=== PATIENT | male | born 2000 | race Caucasian/White ===

== ENCOUNTER 2024-08-14 01:44 | Emergency (ER) | payer OTHER, SELFPAY ==
[2024-08-14 01:48] VITALS: BP 98/48
--- NOTE | 2024-08-14 08:21 | ED.GENMED ---
History of Present Illness
General
Chief Complaint: Alcohol Problem
Source: patient
Time Seen by Provider: 08/14/24 08:09
History of Present Illness
History of Present Illness:
23-year-old male with past medical history of ADHD, alcohol abuse and depression presenting to the emergency department for evaluation after experiencing palpitations last night noting that he combined bourbon and approximately 6 and half milligrams
of Valium, also taking Antabuse and attempt to abstain from alcohol but endorses persistent nausea and vomiting with multiple episodes throughout the night stating the last few episodes have been a little bit darker in nature. Patient states that
since sitting in the waiting room most of his symptoms have subsided although he does note he vomited about 20 minutes prior to me coming into the room to examine him. Denies any fevers, bowel or urinary symptoms, chest pain, shortness of breath,
abdominal pain or any other concerns. Patient denies any suicidal or homicidal thoughts. He does state that he is interested in information for rehab however does not wish to go to rehab today.
Past History
Past History
ED Past Medical History: Psychiatric (ADHD/depression)
ED Past Surgical History: Orthopedic
Social History
Tobacco: Non-smoker
Alcohol: Binge drinker
Drug: None
Personal: Single
Living: with family
Employment: Employed
Review of Systems
Review of Systems
All Other Systems: ROS reviewed and negative except as documented in HPI and ROS
Phy Exam
Physical Exam
Physical Exam:
GENERAL: Alert , in no apparent distress, dried vomitus on shirt
EYE: clear conjunctiva b/l
HEAD: NCAT
ENT: o/p clr, mmm.
CARDIAC: Regular rate and rhythm .
LUNGS: Clear breath sounds bilaterally, no acute respiratory distress, no wheezes/rales/rhonchi
ABDOMEN: Soft, without focal tenderness, no r/g, no cvat
NEUROLOGICAL: Alert and oriented
SKIN: Warm and dry, skin intact.
MUSCULOSKELETAL: No edema, well perfused.
PSYCH: Normal and appropriate interaction.
Scores
Heart Failure Risk
Heart Failure Risk Score: Not Applicable
Heart Score for Chest Pain Patients
STEMI patient?: Not applicable
Withdrawal Assessment of Alcohol
Withdrawal Assessment Completed?: Not applicable
Course
Orders/Labs/Results
Orders:
Orders
08/14/24 08:20
0.9% Sodium Chloride 1000 ml [Nss] 1,000 ml IV BOLUS
Ondansetron Injectable [Zofran] 4 mg IV NOW STA
08/14/24 08:42
Complete Blood Count/With Diff Urgent
Comprehensive Metabolic Panel Urgent
Abnormal Lab Results
08/14/24
08:42
WBC 11.4 H 10^3/uL
(4.8-10.8)
RBC 4.56 L 10^6/uL
(4.70-6.10)
MCH 33.1 H pg
(27.0-31.0)
RDW 10.8 L %
(11.5-14.5)
Absolute Neuts (auto) 9.5 H 10^3/uL
(1.4-6.5)
Absolute Lymphs (auto) 1.1 L 10^3/uL
(1.2-3.4)
Absolute Monos (auto) 0.7 H 10^3/uL
(0.1-0.6)
Neutrophils % 83.3 H %
(42.2-75.2)
Lymphocytes % 10.0 L %
(20.5-51.1)
Chloride 92 L mmol/L
(98-107)
Glucose 114 H mg/dl
(70-99)
08/14/24 08:42
08/14/24 08:42
Vital Signs
Initial and Last Documented VS:
Initial Vital Signs
Pulse Resp BP Pulse Ox
100 24 98/48 97
08/14/24 01:48 08/14/24 01:48 08/14/24 01:48 08/14/24 01:48
Last Documented Vital Signs
Pulse Resp BP Pulse Ox
66 18 142/72 99
08/14/24 11:10 08/14/24 11:10 08/14/24 11:10 08/14/24 11:10
MDM/Problems Addressed
Differential Diagnosis Includes:
Medication interaction as patient is taking Antabuse and continue to drink alcohol also likely vomitus induced by that, alcoholic gastritis, Virginie-Ramos tear, less concern for esophageal varices, less concern for infectious etiologies
MDM/Problems Addressed:
23-year-old male presenting to the ER for evaluation of nausea and vomiting persistently following drinking bourbon and taking approximately 6 and half milligrams of Valium. Patient also notes that he has been taking Antabuse over the last few
days. Suspect his nausea and vomiting is likely related to taking the Antabuse and combining this with alcohol. Patient currently noting he feels better although did vomit shortly prior to my examination. Borderline hypotension which could be
related to volume depletion due to the amount of emesis. Will check labs to ensure no electrolyte derangement. Fluids ordered for resuscitation. Zofran ordered. Will contact [facility] to help patient with information for rehab facilities if he so
chooses. Disposition pending
Chronic conditions affecting care: Psychiatric illness
Acute Exacerbation and/or Progression of Chronic Illness: Psychiatric illness
*Pulse Oximetry
Patient hypoxic: no
*Critical Care Note
Total Time (30-74mins, 75-104mins- exclusive of procedures): Not Applicable
Patient Management
Escalation/DeEscalation of care consider admission/obs:
Patient feeling much improved following IVF and Zofran. Declines inpatient rehab but did receive information if he changes his mind. Stable for d/c home. Aware of return precautions to the ED
ED Attending Note
-
Portions of this chart may have been created with voice recognition software.� Occasional wrong word or��sound alike� substitutions may have occurred due to the inherent limitations of voice recognition software.
Discharge Plan
Departure
Patient Disposition: Home (Routine Discharge)
Date of Disposition: 08/14/24
Time of Disposition: 10:02
Patient with high blood pressure during this ER visit?: No
Discharge Problem:
Nausea & vomiting, Alcohol abuse, Adverse drug interaction with alcohol
Instructions: Alcohol Use Disorder (DC)
Prescriptions:
New
ondansetron 4 mg tablet,disintegrating
4 mg PO TIDPRN PRN (Reason: nausea/vomiting) Qty: 6 0RF
No Action
amoxicillin-pot clavulanate 1 TABLET tablet
1 tab PO Q12 Qty: 13 0RF
Interventions
Interventions:
*Risk Screen - Suicide Last Done: 08/14/24 08:22
*General Assessment Last Done: 08/14/24 08:22
ED- Fall Risk Assessment Last Done: 08/14/24 08:22
*ED COVID-19 Vaccine History Last Done: 08/14/24 08:22
*Nursing Disposition Last Done: 08/14/24 11:11
ED- Neurological Assessment Last Done: 08/14/24 08:22
ED-Psychological Assessment Last Done: 08/14/24 08:22
Discharge Date and Time
Discharge Date/Time: 08/14/24 11:17
Print Language: NEPALI
[2024-08-14 08:22] VITALS: BMI 24.4
[2024-08-14 08:40] VITALS: BP 149/95
[2024-08-14] MEDS: NSS 1000 IV (08:41)
[2024-08-14] MEDS: ZOFRAN 4 MG IV (08:41)
[2024-08-14 09:10] LABS: % Basophils 0.3 % (0-2); % Eosinophils 0.1 % (0-6); % Immature Granulocytes 0.3 % (0-0.5); % Neutrophils 83.3 % (42.2-75.2); Absolute Lymphocytes 1.1 10^3/uL (1.2-3.4); Absolute Monocytes 0.7 10^3/uL (0.1-0.6); Absolute Neutrophils 9.5 10^3/uL (1.4-6.5); Hemoglobin 15.1 g/dL (13.0-18.0); Mean Corpuscular Hgb 33.1 pg (27.0-31.0); Mean Corpuscular Volume 92.1 fL (80.0-94.0); Mean Platelet Volume 8.9 fL (7.4-10.4); Nucleated Red Blood Cells % 0 % (-); Platelet Count 313 10^3/uL (130-400); Red Blood Cell Count 4.56 10^6/uL (4.70-6.10); Red Cell Dist. Width 10.8 % (11.5-14.5); White Blood Cell Count 11.4 10^3/uL (4.8-10.8)
[2024-08-14 09:25] LABS: ALT (SGPT) 21 U/L (0-50); AST (SGOT) 28 U/L (17-59); Albumin 4.9 g/dl (3.5-5.0); Alkaline Phosphatase 76 U/L (38-126); Blood Urea Nitrogen 12 mg/dl (9-20); Calcium 9.5 mg/dl (8.4-10.2); Carbon Dioxide 30 mmol/L (22-30); Chloride 92 mmol/L (98-107); Estimated Creatinine Clearance > 125 ml/min; Glucose 114 mg/dl (70-99); Potassium 4.1 mmol/L (3.5-5.1); Sodium 136 mmol/L (135-145); Total Bilirubin 0.5 mg/dl (0.2-1.3); Total Protein 7.5 g/dl (6.3-8.2); eGFR > 60.00
[2024-08-14 11:10] VITALS: BP 142/72
== END 2024-08-14 11:17 | disposition home or self-care (01) ==
LOC: EMR 01:44
PROVIDERS: Physician Assistant Medical; EMERGENCY PHYSICIAN Emergency Medicine
DX: R11.2 Nausea with vomiting, unspecified (principal); F10.10 Alcohol abuse, uncomplicated; R00.2 Palpitations; F90.9 Attention-deficit hyperactivity disorder, unspecified type
CPT/HCPCS: 99283; 96374; 96361; 80053; 85025